=== PATIENT | male | born 1935 | race Caucasian/White ===

== ENCOUNTER 2017-12-08 22:29 | Inpatient (IN) | payer MEDICAID, MEDICARE, OTHER ==
[~2017-12-08] VITALS: Ht 175.3 cm; Wt 109.2 kg
[2017-12-08] MEDS ORDERED: DEXTROSE 50%, 50ML SYRINGE ONE ×2 (22:31→22:34)
[2017-12-08] MEDS ORDERED: SODIUM CHLORIDE FLUSH 10ML SYR IVF ONE (23:00)
[2017-12-08] MEDS ORDERED: DEXTROSE 50%, 50ML SYRINGE IVPush ONE (23:00)
[2017-12-08 23:04] LABS: MEAN CORPUSCULAR HEMOGLOBIN 27.7 pg (27.5-34.5); MEAN CORPUSCULAR VOLUME 81.3 fL (81-97); MEAN PLATELET VOLUME 9.3 fL (7.4-10.4); PLATELET COUNT 295 x10^3/uL (130-400); RED BLOOD COUNT 4.91 x10^6/uL (4.38-5.82); RED CELL DISTRIBUTION WIDTH 16.1 % (9.4-14.8)
[2017-12-08 23:05] LABS: ALBUMIN 3.8 g/dL (3.4-5.0); ANION GAP 8 mmol/L (5-15); CALCIUM 9.1 mg/dL (8.5-10.1); CHLORIDE 106 mmol/L (98-107)
[2017-12-08 23:09] LABS: ALANINE AMINOTRANSFERASE 33 U/L (12-78); ALKALINE PHOSPHATASE 71 U/L (45-117); BILIRUBIN,TOTAL 1.2 mg/dL (0.2-1.0); CREATININE 3.58 mg/dL (0.7-1.3); TOTAL PROTEIN 8.4 g/dL (6.4-8.2)
[2017-12-08 23:40] LABS: BASOPHILS # (AUTO) 0.05 x10^3/uL (0-0.1); BASOPHILS % (AUTO) 0 % (0-1); EOSINOPHILS # (AUTO) 0.35 x10^3/uL (0-0.4); EOSINOPHILS % (AUTO) 3 % (1-7); LYMPHOCYTES # (AUTO) 3.49 x10^3/uL (1-3.4); LYMPHOCYTES % (AUTO) 30 % (22-44); MD SCAN; MONOCYTES # (AUTO) 1.64 x10^3/uL (0.2-0.8); MONOCYTES % (AUTO) 14 % (2-9); NEUTROPHILS # (AUTO) 6.28 x10^3/uL (1.8-6.8); NEUTROPHILS % (AUTO) 53 % (42-75)
[2017-12-09] MEDS ORDERED: POTASSIUM CHLORIDE 20 MEQ TAB.ER.PRT PO ONE
[2017-12-09] MEDS ORDERED: D5%-0.45% NACL 1,000 ML IV SCH ×2 (00:04→14:16)
[2017-12-09] MEDS ORDERED: POTASSIUM CHLORIDE 20 MEQ TAB.ER.PRT ONE (00:19)
[2017-12-09 00:30] VITALS: BP 152/77
[2017-12-09] MEDS ORDERED: hydrALAzine 20 MG/ML, 1ML IVPush PRN (00:30)
[2017-12-09] MEDS ORDERED: ACETAMINOPHEN 325 MG TABLET PO PRN ×2 (00:30→12:00)
[2017-12-09 00:34] LABS: CHOLESTEROL, TOTAL 320 mg/dL (140-239); TRIGLYCERIDES 504 mg/dL (50-200)
[2017-12-09 00:43] LABS: CHOL/HDL RATIO 6.3; HDL CHOL % 16 % (26-37); HDL CHOLESTEROL (DIRECT) 51 mg/dL (40-60)
[2017-12-09] MEDS: HEPARIN 5,000 UNITS/ML, 1ML SQ SCH ×3 (01:54→18:40)
[2017-12-09 04:09] LABS: MICROSCOPIC NOT IND
[2017-12-09 04:11] LABS: CULTURE INDICATED? NO
[2017-12-09 04:22] LABS: AMPHETAMINE SCREEN, URINE Negative (Negative); BARBITURATE SCREEN, URINE Negative (Negative); BENZODIAZEPINE SCREEN, URINE Negative (Negative); CANNABINOID SCREEN, URINE Negative (Negative); COCAINE SCREEN, URINE Negative (Negative); METHADONE SCREEN, URINE Negative (Negative); OPIATE SCREEN, URINE Positive (Negative)
[2017-12-09 08:58] VITALS: BP 149/67
[2017-12-09 09:24] LABS: ALANINE AMINOTRANSFERASE 28 U/L (12-78); ANION GAP 9 mmol/L (5-15); CALCIUM 8.3 mg/dL (8.5-10.1); CHLORIDE 105 mmol/L (98-107); CREATININE 3.45 mg/dL (0.7-1.3)
[2017-12-09 09:26] LABS: ALKALINE PHOSPHATASE 59 U/L (45-117); BILIRUBIN,TOTAL 1.4 mg/dL (0.2-1.0); TOTAL PROTEIN 6.9 g/dL (6.4-8.2)
[2017-12-09 09:34] LABS: BASOPHILS # (AUTO) 0.03 x10^3/uL (0-0.1); BASOPHILS % (AUTO) 0 % (0-1); EOSINOPHILS # (AUTO) 0.16 x10^3/uL (0-0.4); EOSINOPHILS % (AUTO) 2 % (1-7); LYMPHOCYTES # (AUTO) 1.83 x10^3/uL (1-3.4); LYMPHOCYTES % (AUTO) 20 % (22-44); MD NO; MEAN CORPUSCULAR HEMOGLOBIN 27.1 pg (27.5-34.5); MEAN CORPUSCULAR HGB CONC 33.7 g/dL (33.2-36.2); MEAN CORPUSCULAR VOLUME 80.3 fL (81-97); MEAN PLATELET VOLUME 9.1 fL (7.4-10.4); MONOCYTES # (AUTO) 0.95 x10^3/uL (0.2-0.8); MONOCYTES % (AUTO) 11 % (2-9); NEUTROPHILS # (AUTO) 6.12 x10^3/uL (1.8-6.8); NEUTROPHILS % (AUTO) 67 % (42-75); PLATELET COUNT 247 x10^3/uL (130-400); RED BLOOD COUNT 4.46 x10^6/uL (4.38-5.82); RED CELL DISTRIBUTION WIDTH 16.4 % (9.4-14.8)
[2017-12-09] MEDS ORDERED: DONE10TA7 PO (10:46)
[2017-12-09] MEDS ORDERED: INSU100V8 SQ (10:46)
[2017-12-09] MEDS ORDERED: METO25TA35 PO (10:46)
[2017-12-09] MEDS ORDERED: ASPI-496 PO (10:46)
[2017-12-09] MEDS ORDERED: VENL150T PO (10:46)
[2017-12-09] MEDS ORDERED: CHOL20002 PO (10:46)
[2017-12-09] MEDS ORDERED: ASCO500T7 PO (10:46)
[2017-12-09] MEDS ORDERED: TAMS-11 PO (10:46)
[2017-12-09] MEDS ORDERED: FLUT1AER INH (10:46)
[2017-12-09] MEDS ORDERED: FURO20TA3 PO (10:46)
[2017-12-09] MEDS ORDERED: ACET325T26 PO (10:46)
[2017-12-09] MEDS ORDERED: QUET50TA PO (10:46)
[2017-12-09] MEDS ORDERED: CYCL5TAB PO (11:04)
[2017-12-09] MEDS ORDERED: INSU100C5 SQ-INSULIN (11:04)
[2017-12-09] MEDS ORDERED: HYDR-3245 PO (11:04)
[2017-12-09] MEDS ORDERED: CYCLOBENZAPRINE 10 MG TABLET PO PRN (11:30)
[2017-12-09] MEDS ORDERED: FLUTICASONE/VILANTEROL 100-25MCG/INH INH PRN (11:30)
[2017-12-09] MEDS ORDERED: ACETAMINOPHEN 325 MG TABLET PO SCH (11:30)
[2017-12-09] MEDS ORDERED: PHARMACY MAY ADJ FOR RENAL FX MC PRN (11:30)
[2017-12-09] MEDS: HYDROcodone/APAP 5/325 TABLET PO PRN ×2 (11:50→16:57)
[2017-12-09 14:39] VITALS: BP 125/74
[2017-12-09 18:55] LABS: CREATININE,URINE RANDOM 62.8 mg/dL
[2017-12-09 19:09] VITALS: BP 153/74
[2017-12-09] MEDS ORDERED: QUETIAPINE 25MG TABLET PO SCH (21:00)
[2017-12-09] MEDS ORDERED: METOPROLOL TARTRATE 25 MG TABLET PO SCH (21:00)
[2017-12-09] MEDS ORDERED: DONEPEZIL 10 MG TABLET PO SCH (21:00)
[2017-12-10] MEDS ORDERED: TAMSULOSIN 0.4 MG CAP.ER.24H PO SCH (09:00)
[2017-12-10] MEDS ORDERED: VENLAFAXINE 50MG TABLET PO SCH (09:00)
[2017-12-10] MEDS ORDERED: CHOLECALCIFEROL 1,000 UNIT TABLET PO SCH (09:00)
[2017-12-10] MEDS ORDERED: ASCORBIC ACID 500 MG TABLET PO SCH (09:00)
[2017-12-10] MEDS ORDERED: ASPIRIN 81 MG TABLET EC PO SCH (09:00)
== END 2017-12-09 21:25 | disposition left against medical advice (07) | DRG 682 ==
LOC: ED 23:47 → OBSVTOIN 23:51 → INTOOBSV 23:51 → EDIP 23:51 → 3NE 12-09 00:50
PROVIDERS: ADMIT Internal Medicine; ATTEND Internal Medicine
DX: N17.9 Acute kidney failure, unspecified (principal); G93.41 Metabolic encephalopathy; R17 Unspecified jaundice; E11.22 Type 2 diabetes mellitus with diabetic chronic kidney disease; E11.649 Type 2 diabetes mellitus with hypoglycemia without coma; E87.6 Hypokalemia; F03.90 Unspecified dementia, unspecified severity, without behavioral disturbance, psychotic disturbance, mood disturbance, and anxiety; F32.9 Major depressive disorder, single episode, unspecified; I12.9 Hypertensive chronic kidney disease with stage 1 through stage 4 chronic kidney disease, or unspecified chronic kidney disease; N18.9 Chronic kidney disease, unspecified; Z79.4 Long term (current) use of insulin; R00.1 Bradycardia, unspecified
CPT/HCPCS: 36415; 70450; 76770; 80053; 80061; 80307; 81003; 82436; 82570; 82962; 83735; 84133; 84156; 84300; 84443; 85025; 93005; 96374; 96376; J1644; G0378